=== PATIENT | male | born 1940 | race Caucasian/White ===

== ENCOUNTER 2019-04-30 11:59 | Inpatient (IN) ==
[2019-04-30] MEDS ORDERED: NS 500 ML IV ONE ×2 (12:45→15:08)
--- NOTE | 2019-04-30 13:19 | EKG Report ---
Test Performed on : 04/30/2019 12:52:38 PM Test Reason : weakness Blood Pressure : / mmHG Vent. Rate : 109 BPM Atrial Rate : 107 BPM P-R Int : 000 ms QRS Dur : 186 ms QT Int : 458 ms P-R-T Axes : 000 -48 090 degrees QTc Int : 616 ms Atrial fibrillation. with rapid ventricular response. with premature ventricular or aberrantly conduc shaun complexes. Left axis deviation Left bundle branch block Abnormal ECG When compared with ECG of 04-AUG-2017 08:17, Vent. rate has increased BY 42 BPM Left bundle branch block is now present Borderline criteria for Anterior infarct are no longer present Unconfirmed Result
--- NOTE | 2019-04-30 13:22 | Diag Imaging Result Doc PS360 ---
EXAM: CHEST-2 VIEWS - 04/30/2019 HISTORY: short of breath TECHNIQUE: Chest two views COMPARISON: 02/15/2017 portable chest, 02/13/2017 chest two views FINDINGS: There is mild cardiomegaly similar to prior. There has been interval insertion of transvenous cardiac pacemaker. Inspiration is mildly shallow. There is mild prominence of basilar interstitial markings similar to prior exams. There are tiny pleural effusions versus mild pleural thickening. There is no dense consolidation or pneumothorax identified. IMPRESSION: Mild congestive heart failure versus basilar interstitial scarring. Electronically signed by Hi Woodward 04/30/2019 1:19 PM
[2019-04-30 14:07] LABS: BASO# 0.04 X1000 (0.0-0.2); BASO% 0.4 % (0.0-0.8); EOS# 0.05 X1000 (0.0-0.7); EOS% 0.5 % (0.0-10.0); HEMATOCRIT 45.7 % (42.0-52.0); HEMOGLOBIN 15.1 g/dL (14.0-18.0); IMM GRAN# 0.03 X1000 (0.0-0.04); IMM GRAN% 0.3 % (0.0-0.5); LYMPH# 1.92 X1000 (1.2-3.4); LYMPH% 18.2 % (20.5-51.1); MCV 93.8 FL (81-99); MONO# 0.74 X1000 (0.11-0.59); MPV 13.1 FL (7.4-10.4); NEUT# 7.78 X1000 (1.4-6.5); NEUT% 73.6 % (42.2-75.2); PLT 223 X1000 (130-400); RBC 4.87 XMIL (4.7-6.1); RDW 14.9 % (11.5-14.5); WBC 10.56 X1000 (4.8-10.8)
[2019-04-30 14:08] LABS: URINE SOURCE CLEAN CATCH
[2019-04-30 14:12] LABS: BILIRUBIN URINE NEGATIVE (NEGATIVE); BLOOD URINE NEGATIVE (NEGATIVE); COLOR YELLOW; GLUCOSE URINE NEGATIVE (NEGATIVE); KETONE URINE TRACE mg/dL (NEGATIVE); LEUKOCYTES URINE NEGATIVE (NEGATIVE); NITRITE URINE NEGATIVE (NEGATIVE); PROTEIN URINE TRACE mg/dL (NEGATIVE); SP GRAVITY URINE 1.022; TURBIDITY URINE CLEAR (CLEAR); UR EPITHELIAL CELLS <10 /HPF (<10); URINE BACTERIA 1+ /HPF; URINE RBC <10 /HPF (<10); URINE WBC <10 /HPF (<10); UROBILINOGEN URINE 2 mg/dL (NORMAL)
[2019-04-30 14:18] LABS: INR 2.14; PROTIME 24.5 Seconds (11.0-16.0); PTT 32.6 Seconds (22.3-41.8)
[2019-04-30 15:03] LABS: ALB/GLOB RATIO 1.5; CALCIUM 9.1 mg/dL (8.8-10.2); CREATININE 1.5 mg/dL (0.7-1.2); TOTAL BILIRUBIN 1.95 mg/dL (0.20-1.00); TOTAL PROTEIN 6.6 g/dL (6.3-8.3)
[2019-04-30] MEDS ORDERED: NS 1,000 ML IV ONE ×2 (15:07)
[2019-04-30] MEDS ORDERED: ROCEPHIN 1 GM in NS 50 ML IV ONE (15:08)
[2019-04-30] MEDS ORDERED: KLOR-CON PO ONE (15:21)
[2019-04-30] MEDS ORDERED: VANCOMYCIN 1 GM/NS 1 GM/250 ML IVPB IV ONE (15:25)
--- NOTE | 2019-04-30 15:26 | PROVIDER DOCUMENTATION ---
This chart was entered by Katie Salcedo Scribe, acting as scribe for Jamie Solorzano MD. HPI-Respiratory General - General Chief Complaint: General Adult Stated Complaint: HEART PT SOB, TIRED, NAUSEA Time Seen by Provider: 04/30/19 12:40 Source: patient Allergies/Adverse Reactions: Patient Allergies Allergy/AdvReac Type Severity Reaction Status Date / Time No Known Allergies Allergy Verified 02/13/17 12:30 Home Medications: Home Medication List Medication Instructions Recorded Confirmed Last Taken Type Ascorbic Acid [Vitamin C] 1,000 mg PO DAILY 02/14/17 08/04/17 08/04/17 06:00 History Atorvastatin Calcium 80 mg PO DAILY 02/14/17 08/04/17 08/04/17 06:00 History Cholecalciferol (Vitamin D3) 2,000 unit PO DAILY 02/14/17 08/04/17 08/04/17 06:00 History [Vitamin D3] Ubidecarenone/Vit E Acetate [Co 3 each PO DAILY 02/14/17 08/04/17 08/04/17 06:00 History Q-10 100 mg Softgel] Furosemide [Lasix] 40 mg PO DAILY #30 tablet 02/17/17 08/04/17 08/03/17 06:00 Rx Metoprolol [Lopressor] 100 mg PO BID #60 tablet 02/17/17 08/04/17 08/04/17 06:00 Rx Omeprazole [Prilosec] 40 mg PO DAILY #30 capsule 02/17/17 08/04/17 08/04/17 06 :00 Rx Sacubitril/Valsartan [Entresto 24 1 each PO BID #60 tablet 02/17/17 08/04/17 08/04/17 06:00 Rx mg-26 mg Tablet] - History of Present Illness-Resp Nature of Presenting Problem: Patient is a 78 year old male who presents with shortness of breath. States fatigue and nausea with shortness of breath. Report symptoms have been present for 1 week and worsened. Denies weight gain. States having an increase in Lasix recently. History of A fib and CHF. Quality of Pain: reports: none Severity in ED: reports: mild Onset/Duration: reports: 1 week ago Timing: reports: still present, getting worse Associated Symptoms: reports: shortness of breath, other (fatigue and nausea) Similar Symptoms Previously?: Yes Recently seen or treated by another doctor?: Yes Review of Systems - Adult - REVIEW OF SYSTEMS - ADULT Constitutional: reports: see HPI, fatique. denies: chills, fever Eyes: reports: no symptoms reported Ears, Nose, Mouth & Throat: reports: no symptoms reported Cardiovascular: reports: no symptoms reported Respiratory: reports: see HPI, shortness of breath. denies: cough, wheezing Gastrointestinal: reports: see HPI, nausea. denies: abdominal pain, vomiting Genitourinary: reports: no symptoms reported Musculoskeletal: reports: no symptoms reported Integumentary: reports: no symptoms reported Neurological: reports: no symptoms reported Psychiatric: reports: no symptoms reported Endocrine: reports: no symptoms reported Hematologic/Lymphatic: reports: no symptoms reported Allergic/Immunologic: reports: no symptoms reported All Other Systems: Reviewed and Negative Past History - Adult - PAST MEDICAL HISTORY-ADULT Review of Records: reports: Old Records Reviewed, Nursing Assessment Review, Medications Reviewed, Social history reviewed & non-contributory. Major Childhood Illnesses: reports: denies history Cardiovascular: reports: A-Fib, CHF, HTN, hyperlipidemia Respiratory: reports: denies history Gastrointestinal: reports: denies history Obstetrical/Gynecological: reports: denies history Genitourinary: reports: denies history Musculoskeletal: reports: denies history Neurological: reports: denies history Psychiatric: reports: denies history Endocrine/Immune: reports: denies history Other Conditions: reports: denies history - PRIOR SURGERIES/PROCEDURES Surgical/Procedure History: reports: pacemaker - IMMUNIZATION STATUS Childhood Immunizations: See Nurse Assessment Flu Vaccine: See Nurse Assessment - FAMILY HISTORY Family History: reviewed, not pertinent - SOCIAL HISTORY Smoking: cigarettes (former) Substance Use: alcohol Alcohol Use Frequency: occasionally Living Situation: family Physical Exam-General - PHYSICAL EXAM-ADULT Initial Vital Signs Reviewed: Yes - CONSTITUTIONAL General Appearance: alert, no apparent distress. negative: lethargic - HEAD, EARS, NOSE, MOUTH & THROAT HENMT: normocephalic/atraumatic, other (dry mucous membranes). negative: angioedema - RESPIRATORY Respiratory: chest non-tender, decreased breath sounds (diminished BS), rhonchi (left base) - CARDIOVASCULAR Cardiovascular: no murmur, irregularly irregular (rate controlled). negative: tachycardia - GASTROINTESTINAL (ABDOMEN) Abdominal Exam: normal bowel sounds, non tender, soft. negative: rigid - MUSCULOSKELETAL Extremity: non-tender, normal inspection. negative: pedal edema - SKIN Integumentary: normal color, normal turgor, warm/dry. negative: diaphoresis, pallor - NEUROLOGIC Neurologic: grossly normal. negative: aphasia, facial droop - PSYCHIATRIC Psych/Mental Status: normal mood/affect, oriented x 3. negative: anxious Progress - PLAN OF CARE/RESULTS Progress/Plan/Lab Results: Vital Signs - 8 hr 04/30/19 12:11 04/30/19 13:45 04/30/19 14:03 Temperature 97.4 F L Pulse Rate 108 H 93 H 105 H Respiratory Rate 20 13 21 Blood Pressure 101/76 110/91 O2 Sat by Pulse Oximetry 99 97 98 04/30/19 14:33 04/30/19 15:03 Temperature Pulse Rate 94 H 96 H Respiratory Rate 22 22 Blood Pressure 98/83 103/68 O2 Sat by Pulse Oximetry 91 L 93 L 04/30/19 13:55 Influenza Screen - Final Nasopharyngeal Laboratory Results - last 24 hr 04/30/19 04/30/19 04/30/19 13:42 13:42 13:42 WBC 10.56 RBC 4.87 Hgb 15.1 Hct 45.7 MCV 93.8 MCH 31.0 MCHC 33.0 RDW Std Deviation 14.9 H Plt Count 223 MPV 13.1 H Immature Gran % (Auto) 0.3 Neut % (Auto) 73.6 Lymph % (Auto) 18.2 L [place] % (Auto) 7.0 Eos % (Auto) 0.5 Baso % (Auto) 0.4 Immature Gran # (Auto) 0.03 Neut # (Auto) 7.78 H Lymph # (Auto) 1.92 [place] # (Auto) 0.74 H Eos # (Auto) 0.05 Baso # (Auto) 0.04 PT INR PTT (Actin FS) Sodium 135 L Potassium 3.0 L Chloride 91 L Carbon Dioxide 22 L Anion Gap 22 BUN 38 H Creatinine 1.5 H Estimated GFR/1.73 m2 45 BUN/Creatinine Ratio 25 Glucose 171 H Calculated Osmolality 283 Calcium 9.1 Magnesium 2.0 Total Bilirubin 1.95 H AST 167 H ALT 133 H Alkaline Phosphatase 139 H Creatine Kinase 131 Troponin T [id number] Pept Total Protein 6.6 Albumin 4.0 Globulin 2.6 Albumin/Globulin Ratio 1.5 Plasma Lactate TSH 16.63 H Urine Source Urine Color Urine Turbidity Urine pH Ur Specific [place] Urine Protein Ur Glucose (Stick) Ur Ketones (Stick) Urine Blood Urine Nitrite Urine Bilirubin Urobilinogen Dipstick Urine Leukocytes Urine WBC (Auto) Urine RBC (Auto) U Epithel Cells (Auto) Urine Bacteria (Auto) 04/30/19 04/30/19 04/30/19 13:42 13:42 13:42 WBC RBC Hgb Hct MCV MCH MCHC RDW Std Deviation Plt Count MPV Immature Gran % (Auto) Neut % (Auto) Lymph % (Auto) [place] % (Auto) Eos % (Auto) Baso % (Auto) Immature Gran # (Auto) Neut # (Auto) Lymph # (Auto) [place] # (Auto) Eos # (Auto) Baso # (Auto) PT 24.5 H INR 2.14 PTT (Actin FS) 32.6 Sodium Potassium Chloride Carbon Dioxide Anion Gap BUN Creatinine Estimated GFR/1.73 m2 BUN/Creatinine Ratio Glucose Calculated Osmolality Calcium Magnesium Total Bilirubin AST ALT Alkaline Phosphatase Creatine Kinase Troponin T Blc-[id number]-Lenmurpkxrg Pept 21901 H Total Protein Albumin Globulin Albumin/Globulin Ratio Plasma Lactate 4.1 H* TSH Urine Source Urine Color Urine Turbidity Urine pH Ur Specific [place] Urine Protein Ur Glucose (Stick) Ur Ketones (Stick) Urine Blood Urine Nitrite Urine Bilirubin Urobilinogen Dipstick Urine Leukocytes Urine WBC (Auto) Urine RBC (Auto) U Epithel Cells (Auto) Urine Bacteria (Auto) 04/30/19 04/30/19 13:42 13:55 WBC RBC Hgb Hct MCV MCH MCHC RDW Std Deviation Plt Count MPV Immature Gran % (Auto) Neut % (Auto) Lymph % (Auto) [place] % (Auto) Eos % (Auto) Baso % (Auto) Immature Gran # (Auto) Neut # (Auto) Lymph # (Auto) [place] # (Auto) Eos # (Auto) Baso # (Auto) PT INR PTT (Actin FS) Sodium Potassium Chloride Carbon Dioxide Anion Gap BUN Creatinine Estimated GFR/1.73 m2 BUN/Creatinine Ratio Glucose Calculated Osmolality Calcium Magnesium Total Bilirubin AST ALT Alkaline Phosphatase Creatine Kinase Troponin T < 0.010 Cjk-S-Nszalaevped Pept Total Protein Albumin Globulin Albumin/Globulin Ratio Plasma Lactate TSH Urine Source CLEAN CATCH Urine Color YELLOW Urine Turbidity CLEAR Urine pH 6.0 Ur Specific [place] 1.022 Urine Protein TRACE A Ur Glucose (Stick) NEGATIVE Ur Ketones (Stick) TRACE A Urine Blood NEGATIVE Urine Nitrite NEGATIVE Urine Bilirubin NEGATIVE Urobilinogen Dipstick 2 A Urine Leukocytes NEGATIVE Urine WBC (Auto) <10 Urine RBC (Auto) <10 U Epithel Cells (Auto) <10 Urine Bacteria (Auto) 1+ Orders Category Date Time Status Nursing- Obtain EKG once Care 04/30/19 12:38 Active CHEST-2 VIEWS [RAD] Stat Exams 04/30/19 12:39 Completed BLOOD CULTURE [BLDCUL] Stat Lab 04/30/19 13:55 Results CBC WITH ELECTRONIC DIFF [HEME] Stat Lab 04/30/19 13:42 Completed CK PROFILE [SP CHEM] Stat Lab 04/30/19 13:42 Completed COMPREHENSIVE METABOLIC PANEL [CHEM] Stat Lab 04/30/19 13:42 Completed INFLUENZA SCREEN A/B Stat Lab 04/30/19 13:55 Completed LACTATE, PLASMA [CHEM] Stat Lab 04/30/19 13:42 Completed MAGNESIUM [CHEM] Stat Lab 04/30/19 13:42 Completed PRO B-NATRIURETIC PEPTIDE Stat Lab 04/30/19 13:42 Completed PROTIME WITH INR [COAG] Stat Lab 04/30/19 13:42 Completed PTT [COAG] Stat Lab 04/30/19 13:42 Completed TROPONIN T Stat Lab 04/30/19 13:42 Completed TSH Stat Lab 04/30/19 13:42 Completed URINALYSIS W/POSS RFLX CULT [URINALYSIS] Stat Lab 04/30/19 13:55 Completed 0.9% Sodium Chloride Inj [Ns] 1,000 ml Med 04/30/19 15:07 Active IV 999 mls/hr 0.9% Sodium Chloride Inj [Ns] 1,000 ml Med 04/30/19 15:07 Active IV 999 mls/hr 0.9% Sodium Chloride Inj [Ns] 500 ml Med 04/30/19 12:45 Discontinued IV 999 mls/hr 0.9% Sodium Chloride Inj [Ns] 500 ml Med 04/30/19 15:08 Active IV 999 mls/hr CefTRIAXONE [Rocephin] 1 gm Med 04/30/19 15:08 Active 0.9% Sodium Chloride Inj [Ns] 50 ml IV NOW EKG [EKG] Stat Ther 04/30/19 12:39 Draft Result Diagrams: 04/30/19 13:42 04/30/19 13:42 - REASSESSMENT Reassessment #1 Time Reassessed: 15:21 Status: improving (Given IVF bolus 30mlkg for probable severe sepsis as lactate is greater than 4. Given IV rocephin for possible UTI as cause. Given po and IV potassium for hypokalemia) - EKG 1 Time of EKG reading by physician:: 12:52 EKG Read and Signed by:: Jamie Solorzano EKG Interpretation (*Must complete 3 of following elements*): Abnormal Rate: 109 Rhythm: A fib with RVR [place]: left QRS: LBB Comments: prolonged QT; PVCs - XRAY 1 XRAY Study: Chest Impression: See EMR Report ( EXAM: CHEST-2 VIEWS - 04/30/2019 HISTORY: short of breath TECHNIQUE: Chest two views COMPARISON: 02/15/2017 portable chest, 02/13/2017 chest two views FINDINGS: There is mild cardiomegaly similar to prior. There has been interval insertion of transvenous cardiac pacemaker. Inspiration is mildly shallow. There is mild prominence of basilar interstitial markings similar to prior exams. There are tiny pleural effusions versus mild pleural thickening. There is no dense consolidation or pneumothorax identified. IMPRESSION: Mild congestive heart failure versus basilar interstitial scarring. Electronically signed by Hi Woodward 04/30/2019 1:19 PM 04/30/19 1319 Interpreting Physician: Hi Woodward MD Dictated Date/Time: 04/30/19 1310 cc: Jamie Solorzano MD; Lee Ortega MD) - CONSULTS/PCP/HOSPITALIST Notification #1 *Consult/PCP/Hospitalist*: Dr. Pratt Time Discussed: 12:58 Reason/Comments: Dr. Solorzano consulted with Dr. Pratt about patient Consult Disposition: other (Dr. Pratt states when he last saw the patient; the patient's EKG showed a LBBB. Dr. Pratt states he did increase the patient's Lasix as well.) #2 Consult: KERRIE Chicas Time Discussed: 15:23 Consult Disposition: Will see in ED, Admit Departure - Departure Date of Disposition Decision: 04/30/19 Time of Disposition Decision: 15:23 DIAGNOSIS: Severe sepsis with acute organ dysfunction, Hypokalemia, UTI (urinary tract infection), bacterial Congestive heart failure (CHF) Qualifiers: Heart failure type: systolic Heart failure chronicity: chronic Qualified Code(s): I50.22 - Chronic systolic (congestive) heart failure Disposition: ADMITTED INPATIENT 09 Certified Medical Emergency: Emergent Condition: Fair Referrals and Follow-Ups: Lee Ortega MD [Primary Care Provider] - - Critical Care Note This patient required my direct & personal management of CC.: Yes Total Time (mins): 45 Critical Care Statement: This patient required my direct personal management to treat or rule out processes, the absence of which, could potentiallly result in sudden, clinically significant life or limb threatening deterioration. Attestation - Physician/ KATHARINE Attestation Patient care was provided by Advanced Practice Provider:: No The physician spent face to face time with patient:: Yes Advanced Practice Provider documentation review:: Supervising physician onsite and consulted in the evaluation and care of this patient. The physician did have a face to face encounter with the patient. Sepsis: Tissue Perfusion Assmt - Physical Exam Assessment Date: 04/30/19 Time Assessment Initialized: 15:25 Vital Signs: Last Vital Signs Temp 97.4 F L 04/30/19 12:11 Pulse 96 H 04/30/19 15:03 Resp 22 04/30/19 15:03 BP 103/68 04/30/19 15:03 Pulse Ox 93 L 04/30/19 15:03 Height 6 ft Weight 102.058 kg Lung Sounds:: lungs clear Heart Sounds:: Regular Capillary Refill Time: Less Than 2 Seconds Peripheral Pulse Evaluation:: radial (R): 2+, radial (L): 2+ Skin Exam:: pink, turgor good - Impression Impression:: Tissue Perfusion Adequate - Plan Plan:: See Orders (Admit) This chart was documented by the indicated scribe, (Katie Salcedo Scribe) and accurately reflects the services I performed and decisions made by me, Jamie Solorzano MD, as attested by the provider's signature.
[2019-04-30] MEDS ORDERED: POTASSIUM CHLORIDE 20 MEQ/SWI 20 MEQ/100 ML IVPB IV SCH (16:00)
[2019-04-30] MEDS ORDERED: ZOFRAN IV PRN (17:44)
--- NOTE | 2019-04-30 19:51 | HISTORY AND PHYSICAL ---
ADDENDUM: Patient seen and examined by me [id number]. All the laboratories, vital signs and images were reviewed. The patient presented to the emergency department complaining of shortness of breath, generalized weakness and fatigue. The symptoms at this moment are much better after getting some IV fluids. It looks like he came in dehydrated, Apparently his dose of Lasix has been increased recently. Apparently, for the past 2 weeks he has been taking it, and he has been losing a lot of weight, more than 20 pounds of fluid. But now, his energy is almost back to normal. I will also put this patient on a diet. On my physical exam, he does not have any fluid overload. He has some crepitus at the bases of the lungs, but otherwise is benign. He is really hard of hearing. He had an episode of atrial fibrillation with some RVR, but the heart rate was around 107. I will continue with the home medications. We have discussed the advance directive with the patient and the at the bedside, and after at least 15 to 17 minutes, he decided to be a DO NOT RESUSCITATE level 1. I agree with the rest of the nurse practitioner's assessment and plan. ASSESSMENT AND PLAN: For me, the diagnosis is dehydration, probably due to Lasix and poor oral intake, in a patient with severe congestive heart failure and global hypokinesis. His liver function tests are elevated. We will monitor that. On the other hand, his TSH is elevated, and it was elevated before as well. I will ask for a new TSH and a free T4 tomorrow. I believe if this patient is doing fine, probably he can go home tomorrow as well. I agree with the rest of the nurse practitioner's assessment and plan. cc: Michelet Hammond MD
--- NOTE | 2019-04-30 20:25 | HISTORY AND PHYSICAL ---
CHIEF COMPLAINT: Nausea and fatigue, shortness of breath. HPI: This is a 78-year-old gentleman with a prior history of hypertension, hyperlipidemia, BPH with chronic systolic heart failure with EF of 15 to 20 percent in July 2017. He presents to the emergency room complaining of shortness of breath, just generalized fatigue and nausea that he has had for a week. He states that his weight had increased. He had been holding more fluid and approximately 2 weeks ago his virtual reality specialist, Dr. Pratt had increased his Lasix having doubled the dose along with adding metolazone. He reports during this 2 weeks a 25 pound weight loss. Over the last week he has had gradually and reports fatigue, nausea and shortness of breath with exertion over the last week. He is noted to have dry mucous membranes during his exam. PAST MEDICAL HISTORY: 1. Systolic heart failure with EF of 15% in 2017. 2. Atrial fibrillation with a left atrial appendage clot in February 2017. 3. Hypertension. 4. Hyperlipidemia. 5. BPH. 6. Chronic anticoagulation with Eliquis. PAST SURGICAL HISTORY: Fractured right zygomatic orbit and right cheek bone in 1964, tendon graft to the left ring finger 1974. SOCIAL HISTORY: He smokes a pack a day for 21 years. He denies any alcohol or illicit drug use. 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 FAMILY HISTORY: Father was at age 60 from a heart attack, mother at age 74 from congestive heart failure. Brother at age 76 due to heart attack and a brother at age 59 due to drowning. REVIEW OF SYSTEMS: Discussed with patient with pertinent positives stated in the HPI. He denied any syncope or dizziness, any chest pain, any palpitations, any vomiting, diarrhea, constipation any black or bloody vomitus or stools, hematuria, dysuria, frequency, urgency. PHYSICAL EXAMINATION: GENERAL: This is a 78-year-old gentleman who is sitting up in the stretcher in the emergency room in no distress. VITAL SIGNS: Blood pressure is 103/82 with a heart rate of 97, respirations are 20, temperature is 97.4 degrees oral with O2 saturations 96 to 98%. HEENT: Head is normocephalic, atraumatic. Mucous membranes are dry. NECK: Supple with trachea midline. CARDIOVASCULAR: Irregularly irregular rate and rhythm. S1 and S2 are appreciated. He has no lower extremity edema. Calves are nontender bilateral with peripheral pulses palpable x4 extremities. PULMONARY: Breath sounds are clear with no increased work of breathing noted. Chest rises falls symmetric respiration. Chest wall is nontender to palpation. GASTROINTESTINAL: Abdomen soft, nontender, nondistended with bowel sounds in all 4 quadrants. NEUROLOGIC: He is alert and oriented x3. SKIN: Warm and dry. LABS: WBC is 10 with hemoglobin 15.1, hematocrit 45.7 and platelets of 223,000. INR is 2.14. Sodium is 135, potassium 3, BUN 38, creatinine 1.5 with a glucose of 171, total bilirubin is 1.95 with AST 167, ALT 133 and alkaline phosphatase 139. Troponin is negative. ProBNP is 15,912. Lactate is 4.1 with a TSH of 16.63. Urinalysis is essentially negative having less than 10 microscopic white blood cells, red blood cells, epithelial cells, negative nitrate, blood culture, urine culture pending. Influenza A and B are both negative. Chest x-ray revealed mild congestive heart failure versus basilar interstitial scarring. EKG reveals atrial fibrillation, rapid ventricular response at rate 109 with a left bundle branch block. ASSESSMENT AND PLAN: 1. Acute kidney injury in the setting of chronic kidney disease. This is very likely secondary to intravascular volume depletion as the patient has been diuresed to a 25 pound weight loss over the last 2 weeks per his report. He was given 3 L of fluid in the emergency room. We will hold any further hydration hold any renal toxic medications. Will repeat labs in the morning. 2. Systolic heart failure chronic with an ejection fraction of 15 to 20 percent with global hypokinesis in July 2017. 3. Generalized fatigue and shortness of breath. We will identify his home medications and continue as appropriate, check an echocardiogram in the morning, his proBNP is elevated at 15,912 despite weight loss, recent diuresis. Will repeat this in the morning. 4. Hypokalemia. This was replaced in the emergency room. We will repeat labs in the morning. 5. History of atrial fibrillation. Will identify his home medications and continue. 6. TSH of 16.63. Patient denies any prior diagnosis of hypothyroid, in review of his records in 03/03/2019 he had a TSH of 9.63. Will check a free T4 and reevaluate in the morning. 7. Elevated liver function tests. Will check an abdominal ultrasound in the morning, he will be NPO after midnight for ultrasound. 8. Chronic anticoagulation secondary to atrial fibrillation. Will continue his Eliquis his home dose . 9. Elevated lactate. The patient does have a lactate of 4.1 in the setting of no white count, no fever with a urinalysis with less than 10 microscopic red blood cells white blood cells and epithelial cells. We will give no antibiotics at this time, any antibiotics will be culture driven as blood cultures and urine culture pending. 10. Plan was discussed with Dr. Miguel. Further treatments pending hospital course. 11. Will check a CBC, CMP, a free T4 as well as repeat a TSH in the morning with repeat proBNP. We will also obtain a PA and lateral chest x-ray. Further treatments pending hospital course. Plan discussed with Dr Miguel. Dictated by KERRIE Zamora for Michelet Hammond MD cc: KERRIE Zamora MD [facility]
[2019-04-30 20:32] LABS: INR 1.95; PROTIME 22.7 Seconds (11.0-16.0); PTT 33.2 Seconds (22.3-41.8)
[2019-04-30] MEDS: POTASSIUM CHLORIDE 20 MEQ/SWI 20 MEQ/100 ML IVPB IV SCH ×2 (20:47→22:47)
[2019-04-30] MEDS ORDERED: LOPRESSOR PO SCH (21:00)
[2019-04-30] MEDS: LOPRESSOR PO SCH (21:43)
[2019-04-30] MEDS: ENTRESTO 24 MG-26 MG TABLET PO SCH (22:16)
[2019-04-30] MEDS: ELIQUIS PO SCH (22:16)
[2019-05-01 03:05] LABS: HEMATOCRIT 39.9 % (42.0-52.0); MCH 31.1 PG (27-31); MCHC 32.6 g/dL (33-37); MCV 95.5 FL (81-99); MPV 12.6 FL (7.4-10.4); RBC 4.18 XMIL (4.7-6.1); RDW 14.9 % (11.5-14.5); WBC 11.48 X1000 (4.8-10.8)
[2019-05-01 03:21] LABS: ALB/GLOB RATIO 1.6; ALBUMIN 3.5 g/dL (3.5-5.0); CALCIUM 7.9 mg/dL (8.8-10.2); CREATININE 1.5 mg/dL (0.7-1.2); POTASSIUM 3.2 mmol/L (3.5-5.1); TOTAL BILIRUBIN 1.36 mg/dL (0.20-1.00); TOTAL PROTEIN 5.7 g/dL (6.3-8.3)
[2019-05-01 03:40] LABS: FREE T4 1.61 ng/dL (0.93-1.70)
[2019-05-01 04:10] LABS: TSH 13.43 uIUmL (0.27-4.20)
--- NOTE | 2019-05-01 08:25 | Diag Imaging Result Doc PS360 ---
CHEST-2 VIEWS - 05/01/2019 INDICATION: CHF COMPARISON: 04/30/2019 FINDINGS: Stable pacemaker. Stable cardiomegaly. There has been some improvement in the hazy nonspecific bibasilar infiltrates. No infiltrates. There are trace bilateral pleural effusions. IMPRESSION: Improvement in the mild, hazy bibasilar infiltrates, nonspecific. Electronically signed by Aren Steiner 05/01/2019 8:23 AM
[2019-05-01] MEDS ORDERED: KLOR-CON PO ONE (08:48)
[2019-05-01] MEDS ORDERED: LIPITOR PO SCH (09:00)
[2019-05-01] MEDS ORDERED: LOPRESSOR PO SCH (09:00)
[2019-05-01] MEDS: ENTRESTO 24 MG-26 MG TABLET PO SCH ×2 (09:22→23:20)
[2019-05-01] MEDS: LOPRESSOR PO SCH ×2 (09:22→23:20)
[2019-05-01] MEDS: VITAMIN C PO SCH (09:22)
[2019-05-01] MEDS: ELIQUIS PO SCH ×3 (09:23→23:20)
[2019-05-01] MEDS: VITAMIN D PO SCH (09:23)
--- NOTE | 2019-05-01 11:53 | PROGRESS NOTE ---
DATE: 05/01/2019 SUBJECTIVE: This patient is feeling much better. He was n.p.o. but we have placed this patient on a diet. His liver enzymes are worse even though he received some fluids yesterday. The proBNP is about the same. He is not complaining of chest pain, shortness of breath or abdominal pain, and actually, like I said, he is feeling better. I put this patient back on his home medications. I will hold the atorvastatin because his LFTs are elevated, to avoid more hepatotoxicity. I will continue with the rest of his medications and depending on how he does today, we will need to adjust his medications tomorrow and/or get Cardiology Department to evaluate this patient. OBJECTIVE: Vital Signs: Temperature 97.4 degrees, pulse 76, respiratory rate 14, blood pressure 116/92, oxygen saturation 97% on room air. HEENT: Head normocephalic, no trauma. PERRLA. Neck: Supple. No JVD. No masses. Central trachea. Chest: Clear to auscultation. Some crepitus at the bases. Abdomen: Soft, nontender, nondistended. No hepatosplenomegaly. Extremities: No edema, no clubbing, no cyanosis. Neurological: The patient is awake, alert, and oriented x3. He is hard of hearing. He follows commands. LABORATORY DATA: WBC 11.4, hemoglobin 13, hematocrit 39.9, platelets 200,000. Sodium 138, potassium 3.2, chloride 99, bicarbonate 24, BUN 37, creatinine 1.5, glucose 117, calcium 7.9. AST 330, ALT 242, alkaline phosphatase 140. ProBNP 86690. TSH is elevated at 13.4. ASSESSMENT AND PLAN: 1. Acute kidney injury in the setting of chronic kidney disease. This is likely secondary to dehydration, apparently his dose of Lasix has been increased recently and he has been taking this for about 2 weeks. As per the patient, he lost more than 20 pounds in that period of time and he came in complaining of generalized weakness, shortness of breath, nausea. Today he is feeling much better. I will put this patient on a diet. 2. Systolic heart failure, which is chronic with an ejection fraction of 15 to 20 percent with global hypokinesis. I will continue with his home medications except that I will stop the atorvastatin and the furosemide for now, and I will probably get Cardiology Department to re- evaluate this patient. 3. Elevated liver function tests. They are still elevated even though he seems to be hydrated today and he is feeling better. He received at least 4 L of fluids yesterday, chest x-ray looks fine today. I will continue to monitor. 4. Probably hypothyroidism. TSH has been elevated, so I will probably start this patient on a low dose of levothyroxine and he will need to check this in 6 weeks again. 5. Hypokalemia. I will replace it. 6. Chronic anticoagulation secondary to atrial fibrillation. Continue with Eliquis. 7. Atrial fibrillation. Continue with the same management. 8. Elevated lactate level. Upon admission, his lactate level was 4.1, but now is 2 which is within normal limits. We will monitor. 9. Generalized fatigue and shortness of breath. He is feeling much better after fluid resuscitation. I have requested an echocardiogram, and we have stopped the atorvastatin due to his elevated liver function tests. cc: Michelet Hammond MD
--- NOTE | 2019-05-01 14:35 | Diag Imaging Result Doc PS360 ---
US ABDOMEN-COMPLETE - 05/01/2019 INDICATION: elevated LFT COMPARISON: 11/03/2015 FINDINGS: There is a right pleural effusion. The gallbladder is collapsed with nonspecific wall thickening. The liver, spleen, and both kidneys are normal. Spleen size is 9.5 x 5.6 cm. No abdominal free fluid. Aorta, IVC, and main portal vein are patent. IMPRESSION: Right pleural effusion. No specific abnormality in the abdomen. Electronically signed by Aren Steiner 05/01/2019 2:33 PM
[2019-05-02 07:31] LABS: BASO# 0.04 X1000 (0.0-0.2); BASO% 0.5 % (0.0-0.8); EOS# 0.16 X1000 (0.0-0.7); HEMATOCRIT 42.5 % (42.0-52.0); HEMOGLOBIN 13.7 g/dL (14.0-18.0); IMM GRAN# 0.02 X1000 (0.0-0.04); IMM GRAN% 0.3 % (0.0-0.5); LYMPH# 2.01 X1000 (1.2-3.4); LYMPH% 25.5 % (20.5-51.1); MCH 31.4 PG (27-31); MCHC 32.2 g/dL (33-37); MCV 97.3 FL (81-99); MONO# 0.63 X1000 (0.11-0.59); MPV 12.3 FL (7.4-10.4); NEUT# 5.01 X1000 (1.4-6.5); NEUT% 63.7 % (42.2-75.2); PLT 202 X1000 (130-400); RBC 4.37 XMIL (4.7-6.1); RDW 15.3 % (11.5-14.5); WBC 7.87 X1000 (4.8-10.8)
--- NOTE | 2019-05-02 07:33 | ECHO REPORT ---
ORDER DATE: 04/30/2019 INTERPRETING PHYSICIAN: Dr. Collier REQUESTING PHYSICIAN: Hospitalist CLINICAL INDICATIONS: This is a 78-year-old male with CHF, possible thrombus. M-MODE MEASUREMENTS: Right ventricle: cm. Left ventricle end diastole: 6.3 cm. Left ventricle end systole: 6.1 cm. Posterior wall: 1.8 cm. Interventricular septum: 0.8 cm. Left atrium: 4.1 cm. Aortic root: 3.0 cm. SUMMARY OF 2-DIMENSIONAL IMAGIN. The left ventricular chamber is markedly dilated. Left ventricular systolic function is severely impaired and appears to be somewhere in the range of 15% to 20% at best. The impairment appears to be global. OPTISON WAS USED TO BETTER VISUALIZE ENDOCARDIUM. 2. The left atrium looks moderately dilated to significantly dilated. 3. The right-sided chambers are mildly enlarged. There is a pacemaker or defibrillator lead noted within the right ventricular chamber. The patient is in atrial fibrillation. 4. The mitral valve shows a moderate degree of regurgitation. Pulse wave Doppler of mitral inflow shows a single filling wave. 5. The tricuspid valve shows a mild to moderate degree of regurgitation. 6. The pulmonary pressure is probably elevated, estimated roughly at 41 mmHg. 7. Pulmonic valve shows mild degree of regurgitation. 8. The aortic valve looks normal. Color flow mapping is unremarkable. 9. There is no pericardial effusion, mass or thrombus. 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 Clinical correlation is recommended. cc: MD Alka Johnson CRNP MTDD
[2019-05-02 07:58] LABS: ALB/GLOB RATIO 1.3; ALBUMIN 3.3 g/dL (3.5-5.0); CALCIUM 8.3 mg/dL (8.8-10.2); CREATININE 1.4 mg/dL (0.7-1.2); TOTAL BILIRUBIN 0.92 mg/dL (0.20-1.00); TOTAL PROTEIN 5.8 g/dL (6.3-8.3)
--- NOTE | 2019-05-02 08:10 | PROGRESS NOTE ---
DATE: 05/02/2019 SUBJECTIVE: Patient resting comfortably in bed. Not in any obvious distress. OBJECTIVE: Vital signs: Temperature 97.8 degrees, pulse 78, respiratory rate 17, blood pressure is 122/90, oxygen saturation is 96%. HEENT: Atraumatic, normocephalic. Cardiovascular: S1, S2. Respiratory: Has evidence of good entry bilaterally. Abdomen: Soft, nontender. No masses felt. Extremities: No evidence of edema. Central nervous system: No obvious focal deficits noted. LABORATORY DATA: WBC is 7.87, hematocrit 42.5 with a platelet count of 202,000. Chemistry from 05/01/2019, sodium 138, potassium 3.2, chloride is 99, bicarb 25, BUN is 37, creatinine 1.5. Total bilirubin 1.36, AST 330, ALT, 242, alkaline phosphatase 140. ProBNP 15,644. TSH level is 13.43. X-ray chest shows improvement in mild hazy bibasilar infiltrate which is nonspecific. A 2D echo of the heart shows left ventricular systolic function which is severely impaired about 15 to 20 percent. ASSESSMENT AND PLAN: 1. Acute systolic congestive heart failure. Monitor intakes and outputs, as well as daily weights. Use diuretics as needed. Consult with Cardiology. 2. Acute kidney injury superimposed on chronic kidney disease. Judicious use of diuretics. Closely follow up on renal function. Avoid nephrotoxic agent. 3. Abnormal liver function test. May be related to congestive hepatopathy. We will check hepatitis panel as well as abdominal ultrasound. 4. Elevated TSH level. Will recommend starting very low dose of levothyroxine. Check free T4 level. Check antithyroid peroxidase antibody. 5. Hypokalemia. Replete potassium. Check magnesium level. 6. Atrial fibrillation. Continue rate controlling agent as needed as well as anticoagulation (apixaban). 7. Deep vein thrombosis prophylaxis. The patient is on apixaban. 8. Gastrointestinal prophylaxis. Proton pump inhibitor. cc: Romaine Infante MD
[2019-05-02 08:25] LABS: CK INDEX 3.8 (0.0-2.5); CK-MB 9.13 ng/mL (0.0-5.0)
[2019-05-02] MEDS: VITAMIN D PO SCH (10:28)
[2019-05-02] MEDS: ELIQUIS PO SCH ×2 (10:28→21:12)
[2019-05-02] MEDS: ENTRESTO 24 MG-26 MG TABLET PO SCH ×2 (10:28→21:12)
[2019-05-02] MEDS: VITAMIN C PO SCH (10:29)
[2019-05-02] MEDS ORDERED: POTASSIUM CHLORIDE 20% LIQUID PO ONE (11:48)
[2019-05-02] MEDS: LANOXIN PO SCH ×2 (12:36→18:48)
[2019-05-02] MEDS: ALDACTONE PO SCH (12:37)
--- NOTE | 2019-05-02 14:16 | CARDIOLOGY CONSULTATION ---
DATE: 05/02/2019 CHIEF COMPLAINT: Weakness, nausea, fatigue, dyspnea. HISTORY OF PRESENT ILLNESS: Mr. Persaud is a 78-year-old, male, patient of Dr. Supa Pratt, who presented to the emergency room on 04/30/2019 at about 12:00 noon with complaints of increasing weakness, fatigue, dyspnea. The patient had been seen by Dr. Pratt on 04/15/2019, and at that time, he reported a weight gain of [address] Pratt recommended a short course of diuretics, including metolazone and extra Lasix to optimize his volume status. The patient says that he did lose about 20 pounds over a period of 7 days or so. His blood work at the time of the visit with Dr. Pratt indicated a BUN of 22 and a creatinine of 1.1, with a proBNP level of 10,379. At the time of his presentation to the ER on 04/30/2019, his proBNP has jumped to 15,912 pg/mL. His BUN also crept up to 38 mg/dL, and his creatinine went up to 1.5 mg/dL. At that time, his EKG showed what appears to be atrial fibrillation with a broad complex QRS of 186 milliseconds, a left axis deviation, nonspecific intraventricular conduction delay, PVC, which is a new change, and his chest x-ray showed mild CHF versus basilar interstitial scarring. The patient has been admitted to the hospital, and his medications have been rearranged. Of note, his LFTs were elevated with an AST of 167, ALT of 133, alkaline phosphatase of 139. They have come down some. Now, the AST is 128, ALT is 162, alkaline phosphatase is normal. His troponins were checked twice and they were negative. He denied having any chest pain. No syncope. No edema. PAST MEDICAL HISTORY: Positive for a diagnosis of a dilated cardiomyopathy. He has some moderate coronary artery disease. However, the etiology of his cardiomyopathy is not coronary disease. He has been found to have paroxysmal atrial fibrillation. Previous Holter showed a supraventricular tachycardia. On 10/20/2018, he received an implantable dual-chamber defibrillator pacemaker, [employer] [id number] Resonate EL [id number] by Dr. Wiggins in [place]. The patient has a history of hypertension, hyperlipidemia. PAST SURGICAL HISTORY: Includes some bone repair in the right cheek. He has had also a tendon graft to the left ring finger, cataract surgery. SOCIAL HISTORY: He is . He is retired from [employer] since 1998. He is not a smoker. He drinks some beer. FAMILY HISTORY: Mother had coronary heart disease and at the age of 74. Father had also coronary heart disease and he in his 60s. Brother had an aortic aneurysm. MEDICATIONS: His home medications at the time of the present admission included the following: He is on sacubitril/valsartan 24/26 mg twice daily, metoprolol 100 mg twice daily, furosemide 80 mg daily, atorvastatin 80 mg daily, ascorbic acid 1000 daily, apixaban 5 mg twice daily. ALLERGIES: He is not allergic to any medication. REVIEW OF SYSTEMS: Other than what I have reported, there is nothing significant. He does not have any pains in his back or legs. He does not have to take pain medications. He is generally active or tries to be active. PHYSICAL EXAMINATION: Vital Signs: Blood pressure today is 108/69, temperature 98.1 degrees, pulse 86, respirations 18. General: He is awake, alert, oriented. No distress. HEENT: No significant jugular venous distention. Chest: Clear to auscultation and percussion. Heart: Heart sounds are irregularly irregular without gallop or murmur. Abdomen: Obese, nontender. Extremities: No significant edema. Pulses are diminished. Neurologic: Nonfocal. Moves 4 extremities. IMPRESSION: 1. Patient presenting with what appears to be a case of volume contraction/dehydration and hypotension caused by over-diuresis, with some acute renal dysfunction, as well as passive congestion of the liver. 2. Advanced congestive heart failure, functional class 3 to 4, [place] [employer] stage D of heart failure. 3. History of moderate coronary artery disease. 4. Paroxysmal/permanent atrial fibrillation. 5. History of hypertension and hyperlipidemia. 6. Dilated non ischemic cardiomyopathy. RECOMMENDATION: At the time of this dictation, I have already reviewed the echocardiogram that was done yesterday that shows that his ejection fraction is in the order of 15% to 20%. His pulmonary pressure is about 41 mmHg. At the present time, I would suggest to add digoxin to control his heart rate, cut down on the doses of metoprolol to about 50 every 8 hours, add spironolactone because of repeatedly low potassium noted on three consecutive blood tests. We may consider up-titrating the sacubitril to the next dose, which is, I believe, 49/51 twice a day, and see how he does. We will monitor the digoxin level to make sure that he does not become toxic. This patient may actually benefit by proceeding with upgrading of his device to a biventricular pacemaker, and consider doing ablation of the AV node. Otherwise, his case is going to be very difficult to manage. cc: Rodrigo Collier MD MTDMagda
[2019-05-02] MEDS: LOPRESSOR PO SCH (18:47)
[2019-05-03] MEDS: LANOXIN PO SCH ×2 (00:37→09:43)
[2019-05-03] MEDS: LOPRESSOR PO SCH ×3 (03:08→17:41)
[2019-05-03] MEDS: SYNTHROID PO SCH (06:35)
[2019-05-03] MEDS: PROTONIX PO SCH (06:35)
[2019-05-03 07:34] LABS: BASO# 0.04 X1000 (0.0-0.2); BASO% 0.5 % (0.0-0.8); EOS% 2.7 % (0.0-10.0); HEMATOCRIT 41.2 % (42.0-52.0); HEMOGLOBIN 13.2 g/dL (14.0-18.0); IMM GRAN# 0.02 X1000 (0.0-0.04); IMM GRAN% 0.3 % (0.0-0.5); LYMPH# 2.18 X1000 (1.2-3.4); MCH 31.4 PG (27-31); MCV 97.9 FL (81-99); MONO# 0.57 X1000 (0.11-0.59); MONO% 7.6 % (1.7-9.3); MPV 12.2 FL (7.4-10.4); NEUT# 4.52 X1000 (1.4-6.5); NEUT% 59.9 % (42.2-75.2); PLT 198 X1000 (130-400); RBC 4.21 XMIL (4.7-6.1); RDW 15.3 % (11.5-14.5); WBC 7.53 X1000 (4.8-10.8)
[2019-05-03 07:48] LABS: ALB/GLOB RATIO 1.3; ALBUMIN 3.1 g/dL (3.5-5.0); CALCIUM 8.3 mg/dL (8.8-10.2); CREATININE 1.2 mg/dL (0.7-1.2); POTASSIUM 3.4 mmol/L (3.5-5.1); TOTAL BILIRUBIN 0.78 mg/dL (0.20-1.00); TOTAL PROTEIN 5.4 g/dL (6.3-8.3)
[2019-05-03] MEDS: ALDACTONE PO SCH (09:42)
[2019-05-03] MEDS: ELIQUIS PO SCH ×2 (09:42→20:41)
[2019-05-03] MEDS: ENTRESTO 24 MG-26 MG TABLET PO SCH ×2 (09:42→20:41)
[2019-05-03] MEDS: VITAMIN D PO SCH (09:42)
[2019-05-03] MEDS: VITAMIN C PO SCH (09:42)
--- NOTE | 2019-05-03 18:09 | PROGRESS NOTE ---
DATE: 05/03/2019 INTERVAL HISTORY: The patient is symptomatically much improved. Remains off of diuretics. No new complaints. No acute events overnight. REVIEW OF SYSTEMS: Twelve-point review of systems negative except as per interval history. LABORATORY DATA: WBC 7.5, hemoglobin 13.2, hematocrit 41.2, platelets 198,000. Sodium 139, potassium 3.4, BUN 20, creatinine 1.2. VITALS: T-max 98.4 degrees, pulse 82, respirations 18, blood pressure 97/66, O2 saturation 99% on room air. OBJECTIVE: General: No acute distress. Vitals: As above. HEENT: Normocephalic, atraumatic. Moist mucous membranes. Cardiovascular: Regular rate and rhythm. No murmurs noted. Pulmonary: Faint left base crackles, otherwise clear to auscultation bilaterally. Abdomen: Soft, nontender, nondistended. Bowel sounds positive. Extremities: Peripheral pulses intact. No clubbing or cyanosis. Neurologic: Cranial nerves grossly intact. No focal deficits identified aside from stable chronic difficulty hearing. Psychiatric: Normal mood and affect. Awake, alert, oriented x3. Follows commands well. Skin: No new appearing rashes or lesions noted. ASSESSMENT AND PLAN: 1. Acute kidney injury on likely chronic kidney disease 3. Improving with holding significant diuresis. He is on spironolactone as per Cardiology. Appears to be essentially baseline at this point. 2. Possible volume depletion, likely secondary to diuresis for his chronic systolic heart failure. The patient has pretty significant heart failure and was being aggressively diuresed for that. Even on admission still had a little bit of pleural effusions and a little bit of prominent interstitial markings, but clinically looked volume down at that time. Much improved now. Awaiting further cardiac recommendations regarding timing and dosing of restarting diuresis. 3. Paroxysmal atrial fibrillation. Normal sinus at the time of my exam. Continue home medications. 4. Hypertension. The patient is hypertensive by history. It has been largely low normal here. Continue home Entresto, Toprol. Continue spironolactone as per Cardiology. 5. Chronic systolic congestive heart failure. Last known ejection fraction of 15% to 20%. The patient started on digoxin to try to help with this some. Awaiting further Cardiology recommendations. 6. Hyperlipidemia. Continue home statin. 7. Mildly elevated liver function tests. Significantly improved. Bilirubin was mildly elevated on admission but normalized now. AST and ALT remain mildly elevated but normalizing rapidly. Likely due to his cardiac issues rather than primary liver problem. 8. Hypokalemia. Further repleting and monitoring. 9. Gastroesophageal reflux disease. Continue proton pump inhibitor.
[2019-05-04] MEDS: LOPRESSOR PO SCH ×3 (00:30→15:50)
[2019-05-04] MEDS: PROTONIX PO SCH (06:24)
[2019-05-04] MEDS: SYNTHROID PO SCH (06:24)
[2019-05-04] MEDS: VITAMIN D PO SCH (10:37)
[2019-05-04] MEDS: VITAMIN C PO SCH (10:37)
[2019-05-04] MEDS: LANOXIN PO SCH (10:38)
[2019-05-04] MEDS: ALDACTONE PO SCH (10:38)
[2019-05-04] MEDS: ELIQUIS PO SCH (10:38)
[2019-05-04] MEDS: ENTRESTO 24 MG-26 MG TABLET PO SCH (10:38)
[2019-05-04 11:52] VITALS: BP 101/72
[2019-05-04 14:47] LABS: HEPATITIS PROFILE ACUTE SEE COMMENTS
--- NOTE | 2019-05-04 18:11 | DISCHARGE SUMMARY ---
ADMISSION DATE: 04/30/2019 DISCHARGE DATE: 05/04/2019 ADMISSION DIAGNOSES: 1. Acute kidney injury in the setting of chronic kidney disease. 2. Systolic heart failure, chronic with ejection fraction 15 to 20 percent and global hypokinesis. 3. Generalized fatigue and shortness of breath. 4. Hypokalemia. 5. History of atrial fibrillation. 6. Possible hypothyroidism. 7. Elevated liver function tests. 8. Chronic anticoagulation secondary to atrial fibrillation. 9. Elevated lactate. DISCHARGE DIAGNOSES: 1. Acute kidney injury on chronic kidney disease stage 3. Improved. 2. Possible volume depletion, likely secondary to diuresis for his chronic systolic heart failure. 3. Paroxysmal atrial fibrillation. 4. Hypertension. 5. Chronic systolic congestive heart failure. Last known ejection fraction 15 to 20 percent. 6. Hyperlipidemia. 7. Mildly elevated liver function tests. 8. Hypokalemia. CONSULTATIONS: Dr. Collier. SURGERIES/PROCEDURES: None. HOSPITAL COURSE: Mr. Cornelio Persaud is a 78-year-old male with a history of hypertension, hyperlipidemia, chronic systolic heart failure with EF of 15 to 20 percent, presented to the emergency department at [facility] with complaints of shortness of breath, generalized fatigue, nausea that had been going on for at least a week. He had also noticed that his weight had also increased 2 weeks prior to presentation. [facility] [employer] [facility] Dr. Pratt increased his Lasix doubling the dose along with adding metolazone. In the last 2 weeks he has had a 25 pounds weight loss and hence the last week prior to presentation more fatigued. He had some acute kidney injury on top of CKD stage 3 secondary to intravascular volume depletion. He was continued on his Eliquis for his atrial fibrillation. He had abdominal ultrasound for the elevated liver functions, which showed a right pleural effusion, but nothing acute in the abdomen. The Lasix was held while he was initially admitted. He also had a new diagnosis of hypothyroidism while he was here and so Synthroid was started. Cardiology was consulted, Dr. Collier who wanted to add digoxin for heart rate control, dropped his metoprolol dosing. Added spironolactone and his sacubitril was increased and even said that the patient may eventually be a good candidate for a biventricular pacemaker and ablation of the AV node. Kidney function improved. Overall, he improved and is going to be discharged home. DISCHARGE VITAL SIGNS: Temperature 97.7 degrees, heart rate 103, respiratory rate 18, blood pressure 101/72, O2 saturation 97% on room air. DISCHARGE LAB DATA: White blood cells 7000, hemoglobin 13, hematocrit 41, platelet count 198,000. Sodium 139, potassium 3.4, BUN 20, creatinine is 1.2, glucose 91, calcium 8.3, magnesium 2.0, bilirubin 0.78, AST 75, ALT is 117, CK 240 g, his last proBNP was 4875. Albumin 3.1. Hepatitis panel nonreactive. PERTINENT IMAGING: Chest x-ray, mild congestive heart failure versus basilar interstitial scarring the , on the improvement in the mild hazy bibasilar infiltrates. Abdominal ultrasound showed right pleural effusion, but no specific abnormality in the abdomen. An EKG on the was atrial fibrillation with RVR rate 109. An echocardiogram was EF of 15 to 20 percent. Pulmonary pressure 41. DISCHARGE MEDICATIONS: 1. Atorvastatin 80 mg p.o. daily. 2. Eliquis 5 mg p.o. twice daily. 3. Vitamin C 1000 mg p.o. daily. 4. Vitamin D3, 2000 units p.o. daily. 5. Entresto 24-26 mg 1 tablet p.o. twice daily. 6. Lasix 80 mg p.o. every other day. 7. Lopressor 100 mg p.o. twice daily. DISCHARGE DIET: Heart healthy. DISCHARGE ACTIVITY: As tolerated. DISCHARGE PHYSICIAN FOLLOWUP: Dr. Supa Pratt and Dr. Ortega. DISCHARGE INSTRUCTIONS: If your condition changes, contact physician and/or return to the emergency department. Changes may include, but not limited to shortness of breath, increased fatigue, excessive bleeding, unexplained weight loss or gain, unmanageable pain, signs or symptoms of infection. Dictated by KERRIE Ronquillo for Moshe Thakkar MD cc: KERRIE Ronquillo Agree with the above. the following is my own face to face assessment. patient with fatigue, likely related to overdiuresis. much improved now. meds adjusted. stable for discharge home to follow up with cardiology and pcp. JUVENTINO
[2019-05-05] MEDS ORDERED: LASIX PO SCH (09:00)
== END 2019-05-04 16:45 | disposition home or self-care (01) | DRG 641 ==
LOC: ED 11:59 → SUATTDRO 21:39 → 3N 21:39
PROVIDERS: ATTEND Internal Medicine